=== PATIENT | male | born 1990 | race Two or more races ===

== ENCOUNTER 2024-02-02 00:05 | Emergency (ER) | payer SELFPAY ==
[2024-02-02 00:05] VITALS: BMI 23.6
[2024-02-02 00:17] VITALS: BP 132/84; PULSE 103; RESP 18; TEMP 38.7; O2SAT 96
--- NOTE | 2024-02-02 00:33 | EDNOTE_ITS ---
Upper Respiratory Inf. RME/HPI General Chief Complaint: Flu Like Symptoms Stated Complaint: FLU LIKE SYMPTOMS Time Seen by Provider: 02/02/24 00:28 Arrival date/time: 02/02/24 00:05 33M with no significant PMH presents to ED with 1 week of cough, sore throat, and fevers/chills. Patient is just started a 10 day course of Keflex 500 mg TID. Patient denies CP and SOB. Limitations: no limitations Related Data Allergies Allergy/AdvReac Type Severity Reaction Status Date / Time No Known Allergies Allergy Verified 02/02/24 00:07 Review of Systems Review of Systems Systems Reviewed: All systems reviewed, normal except as documented Constitutional Constitutional: Reports system reviewed and no additional complaints, except as documented, Reports as per HPI, Reports chills, Reports fever(s) and Denies headache(s) ENT Ears, Nose, Mouth, and Throat: Reports as per HPI, Denies disequilibrium, Denies headache(s) and Reports sore throat Cardiovascular Cardiovascular: Reports system reviewed and no additional complaints, except as documented, Denies chest pain and Denies dyspnea Respiratory Respiratory: Reports system reviewed and no additional complaints, except as documented, Reports as per HPI, Reports cough and Denies dyspnea Gastrointestinal Gastrointestinal: Reports system reviewed and no additional complaints, except as documented, Denies abdominal pain, Denies nausea and Denies vomiting Neurologic Neurologic: Reports system reviewed and no additional complaints, except as documented, Denies confusion, Denies disequilibrium and Denies headache(s) Psychiatric Psychiatric: Denies confusion Past Medical History Social History SMOKING STATUS: Never smoker ED Exam General Limitations: Present no limitations General appearance: Present alert and in no apparent distress Head Head exam: Present atraumatic Eye Eye exam: Present normal appearance, PERRL and EOMI ENT ENT exam: Present mucous membranes moist Expanded ENT Exam Throat exam: Present tonsillar erythema; Absent tonsillomegaly, tonsillar exudate, R peritonsillar mass, L peritonsillar mass or muffled voice Neck Neck exam: Present normal inspection, full ROM and trachea midline Chest Chest inspection: Present normal inspection and symmetric chest wall rise Respiratory Respiratory exam: Present normal lung sounds bilaterally Cardiovascular Cardiovascular exam: Present regular rate, normal rhythm and normal heart sounds Abdominal Exam Abdominal exam: Present soft and normal bowel sounds Extremities Exam Extremities exam: Present normal inspection and full ROM Back Exam Back exam: Present normal inspection and full ROM Neurological Exam Neurological exam: Present alert, oriented X3 and CN II-XII intact Psychiatric Psychiatric exam: Present normal affect and normal mood Skin Skin exam: Present warm, dry, intact and normal color Course Quality Measures none Orders Category Date Time Status Bedside Influenza A&B Antigen Test NOW Care 02/02/24 00:28 Completed Acetaminophen Tab [Tylenol ES Tab] Med 02/02/24 00:28 Discontinued 1,000 mg PO X1 ONE Naproxen [Naprosyn] Med 02/02/24 00:28 Discontinued 500 mg PO X1 ONE Vital Signs Vital signs: Vital Signs Temperature 101.7 F H 02/02/24 00:17 Pulse Rate 103 H 02/02/24 00:17 Respiratory Rate 18 02/02/24 00:17 Blood Pressure 132/84 H 02/02/24 00:17 Pulse Oximetry (%) 96 02/02/24 00:17 Oxygen Delivery Method Room Air 02/02/24 00:17 O2 at 96% on RA and WNLs Upper Respiratory Infection MDM Narrative MDM Narrative:: 33M with no significant PMH presents to ED with 1 week of cough, sore throat, and fevers/chills. Patient is just started a 10 day course of Keflex 500 mg TID. Patient denies CP and SOB. Physical exam reveals red oropharynx, but otherwise clear ENT and lungs. Patient is febrile, but does not appear toxic. Swabs neg. Likely URI, but can also be strep. However, Keflex should cover it. Patient data External records reviewed:: None Clinical information provided by:: patient Social determinants that could affect healthcare access:: none Patient has the following chronic illnesses:: none How is presenting disease/condition affected by chronic disease/condition?: no chronic disease Evaluation data The following diagnostics were reviewed and interpreted by me:: lab results Lab and/or radiology exams considered but not ordered:: ordered Interpretation Summary: above Medications / Prescriptions Medications or Prescriptions considered but not ordered:: ordered Medication administrations:: Medication Administration History Discontinued Medications Acetaminophen (Acetaminophen 500 Mg Tablet) 1,000 mg PO X1 ONE Stop: 02/02/24 00:29 Last Admin: 02/02/24 00:37 Dose: 1,000 mg Documented By: TIFF Naproxen (Naproxen 250 Mg Tablet) 500 mg PO X1 ONE Stop: 02/02/24 00:29 Last Admin: 02/02/24 00:36 Dose: 500 mg Documented By: GB above Consultations Consultation(s) initiated? (list below): No Diagnosis Upper Respiratory Differential Diagnosis: upper respiratory infection, croup, otitis media, sinusitis, viral infection, bronchitis, influenza, pharyngitis and other (CAP) Most likely diagnosis given after review of the tests above:: URI Admission Indicated Admission indicated?: not indicated Admission Request Was there a request for admission?: No Disposition Plan Disposition Plan: Discharge Discharge Attestation Discharge Attestation: The patient and all family members were given an opportunity to ask questions and understood the discharge instructions. Discharge instructions specifically effects, indications for sooner follow up or return to the emergency department, and the expected course of current diagnosis. Patient condition: Stable Discharge Plan Plan Patient Disposition: HOME (Self Care) Disposition Comment: Stable Problem List Clinical Impression: Upper respiratory infection Patient/Caregiver Discharge Instructions Education Materials: ED Pharyngitis, Strep (Presumed) Additional Instructions: Please follow-up with PCP within 24-48 hours and return immediately if symptoms worsen. Finish ABX. Ibuprofen/Tylenol can be used simultaneously for greater fever/pain control. Benadryl is good for cough, congestion, and sleep. Print Language: Irish Stand Alone Forms: Patient Portal Info Letter MARION/KAE Supervising Physician MARION/KAE Supervising Physician: Dr. Zhao
[2024-02-02] MEDS: NAPROXEN 250 MG TABLET 500 MG PO (00:36)
[2024-02-02 00:37] VITALS: TEMP 38.7
[2024-02-02] MEDS: ACETAMINOPHEN 500 MG TABLET 1000 MG PO (00:37)
== END 2024-02-02 00:52 | disposition home or self-care (01) ==
LOC: SERX 01:02
PROVIDERS: Emergency Provider Emergency Medicine
DX: J06.9 Acute upper respiratory infection, unspecified (principal)
CPT/HCPCS: 87400; 87651; 99283; A9270